=== PATIENT | female | born 1930 | race Caucasian/White ===

== ENCOUNTER 2017-05-11 08:10 | Emergency (ER) | payer MEDICARE, BC ==
[2017-05-11 08:23] VITALS: BP 140/76
--- NOTE | 2017-05-11 09:06 | ERNOTE ---
Back Pain ER HPI Presenting Symptoms: hx chronic back pain Time Seen by Provider: 05/11/17 08:37 Source: patient Exam Limitations: no limitations Allergies/Adverse Reactions: Allergies No Known Allergies Allergy (Verified 05/11/17 08:23) Home Medications: HOME MEDICATIONS Ascorbic Acid [Vitamin C] 1,000 mg PO DAILY 07/06/14 [Last Taken Unknown] Atenolol [Tenormin] 50 mg PO DAILY 07/06/14 [Last Taken Unknown] Docusate Sodium [Stool Softener] 50 mg PO DAILY 07/06/14 [Last Taken Unknown] Gabapentin [Neurontin] 600 mg PO HS 07/06/14 [Last Taken Unknown] Lisinopril [Zestril] 40 mg PO DAILY 07/06/14 [Last Taken Unknown] Morphine Sulfate 15 mg PO Q12H 07/06/14 [Last Taken Unknown] Omeprazole [Prilosec] 20 mg PO DAILY 07/06/14 [Last Taken Unknown] Potassium 99 mg PO DAILY 07/06/14 [Last Taken Unknown] metFORMIN HCL [Glucophage] 500 mg PO BIDWM 07/06/14 [Last Taken Unknown] oxyCODONE HCL [Oxycodone] 10 mg PO Q4H PRN 07/06/14 [Last Taken Unknown] Meclizine HCl [Motion-Time] 25 mg PO 09/15/14 [Last Taken 09/15/14 15:00] Pseudoephedrine HCl [Sudafed] 30 mg PO 09/15/14 [Last Taken 09/15/14 14:00] Amitriptyline HCl [Elavil] 10 mg PO HS #30 tablet 05/11/17 [Last Taken Unknown] Narrative: Patient has chronic low back pain from advanced arthritis as well as spinal stenosis. Patient has received epidural injections in the past although she has not required one for many years. She been trying to get some relief from the chiropractor with only minimal success. She states she has both oxycodone and morphine at home but doesn't appear to be working very well. Timing: Reports: constant Quality/Severity: Reports: moderate Location of pain: Reports: lower back Activities at Onset: Reports: none Recent Injury?: Reports: no Modifying Factors - (Improves): Reports: nothing Modifying Factors - (Worsens): Reports: movement to right, movement to left, movement flexion Review of Systems - Review of Systems Constitutional: Present: See HPI EYE: Present: no symptoms reported ENT: Present: no symptoms reported Respiratory: Present: no symptoms reported Cardiology: Present: no symptoms reported Gastrointestinal/Abdominal: Present: no symptoms reported Genitourinary: Present: no symptoms reported Musculoskeletal: Present: See HPI, back pain Skin: Present: no symptoms reported Neurological: Present: no symptoms reported Endocrine: Present: no symptoms reported Hematologic/Lymphatic: Present: no symptoms reported Psych: Present: no symptoms reported - Patient's Past Medical History Patient History - Medical: Diabetes Type 1, UTI'S, Other - chronic back pain and spinal stenosis Patient History - Cardiac/Respiratory: Hypertension Patient History - Cancer: Colon Patient History - Surgical Procedures: Colon Resection, Hysterectomy Patient History - Other: None - Social History Living Situations: spouse Abuse History: No History of abuse Psych History: No pertinent hx Smoking Status: Former smoker Have you smoked in the past 12 months: No Alcohol Use: none Drug Use: none Physical Exam - Physical Exam General Appearance: Present: wd/wn, alert, moderate distress Head Exam: Present: normal inspection Eye Exam: Normal inspection: bilateral, PERRL: bilateral Ears, Nose, Throat: Present: normal ENT inspection, H, normal pharynx Neck: Present: normal inspection, nontender Respiratory: Present: no respiratory distress, normal breath sounds, no accessory muscle use, chest nontender, lungs clear Cardiovascular/Chest: Present: regular rate, rhythm, no murmur, normal peripheral pulses Gastrointestinal/Abdominal: Present: normal bowel sounds, nontender, nondistended, soft, no organomegaly Rectal Exam: Present: deferred Back Exam: Present: decreased range of motion Extremity Exam: Present: normal inspection, non-tender, no edema, normal range of motion Neurological Exam: Present: alert, oriented, normal mood/affect Skin Exam: Present: normal color, warm/dry Lymphatic Exam: Present: no adenopathy ED Progress - Vital Signs Patient's Vital Signs:: I have reviewed the patient's vital signs. Vital Signs: Vital Signs 05/11/17 08:10 Temperature 37 C Pulse Rate 75 Respiratory 14 Rate Blood Pressure 140/76 - X-Ray X-Ray #1 X-Ray: lumbosacral Interpretation: Reviewed by me - Progress/Reassessment Chief Complaint: Back Pain Plan - Plan Plan: Patient has a combination of both DJD and spinal stenosis. She is going to be problematic to manage from emergency department and shortly has adequate pain medicines at home. We will try adding small dose amitriptyline to the regimen and she will see Dr. Francois on this week and he will arrange for an anesthesia consult for an epidural. Departure Clinical Impression: Chronic back pain Qualifiers: Back pain location: low back pain Back pain laterality: bilateral Sciatica presence: without sciatica Qualified Code(s): M54.5 - Low back pain - Departure Disposition: Home self-care Condition: Good Instructions: Back Pain, Adult, [id number], Spinal Stenosis, [id number] Additional Instructions: See Dr. Francois on at 2:30 Referrals: Owen Francois MD [Primary Care Provider] - Prescriptions: Amitriptyline HCl [Elavil] 10 mg PO HS #30 tablet
== END 2017-05-11 09:20 | disposition home or self-care (01) ==
LOC: ER 08:10
DX: M54.5 Low back pain (principal)

== ENCOUNTER 2017-05-12 09:40 | Emergency (ER) | payer MEDICARE, BC ==
[2017-05-12 09:52] VITALS: BP 133/66
[2017-05-12] MEDS ORDERED: MORPHINE SULFATE 2 MG/ML DISP.SYRIN IM ONE (10:38)
[2017-05-12] MEDS ORDERED: KETOROLAC TROMETHAMINE 30 MG/ML VIAL IM ONE (10:38)
[2017-05-12] MEDS ORDERED: MORPHINE SULFATE 2 MG/ML DISP.SYRIN ONE (10:43)
[2017-05-12] MEDS ORDERED: KETOROLAC TROMETHAMINE 30 MG/ML VIAL ONE (10:43)
[2017-05-12 11:00] LABS: Hematocrit 30.5 % (37.0-47.0); Hemoglobin 10.3 gm/dL (12.5-16.0); Mean Cell Volume 105.5 fl (78-100); Mean Corpuscular Hemoglobin 35.6 pg (27-31); Mean Corpuscular Hgb Conc 33.8 g/dl (32-36); Mean Platelet Volume 11.6 fl (6.0-9.5); Neutrophil # 7.1 K/mm3 (1.3-6.0); Neutrophil % 82.2 % (42-75.0); Platelet Count 194 K/mm3 (150-450); Red Blood Count 2.89 M/mm3 (4.2-5.4); Red Cell Distribution Width 16.8 % (11.5-14.0); White Blood Count 8.6 K/mm3 (4.0-10.5)
--- NOTE | 2017-05-12 11:09 | ERNOTE ---
Back Pain ER HPI Date of Service: 05/12/17 Time Seen by Provider: 05/12/17 10:00 Source: patient Exam Limitations: no limitations Immunizations: IMMUNIZATION HX Immunizations Up to Date No History of Influenza Vaccine No Hx Pneumococcal Vaccination No Allergies/Adverse Reactions: Allergies No Known Allergies Allergy (Verified 05/12/17 09:52) Home Medications: HOME MEDICATIONS Ascorbic Acid [Vitamin C] 1,000 mg PO DAILY 07/06/14 [Last Taken Unknown] Atenolol [Tenormin] 50 mg PO DAILY 07/06/14 [Last Taken Unknown] Docusate Sodium [Stool Softener] 50 mg PO DAILY 07/06/14 [Last Taken Unknown] Gabapentin [Neurontin] 600 mg PO HS 07/06/14 [Last Taken Unknown] Lisinopril [Zestril] 40 mg PO DAILY 07/06/14 [Last Taken Unknown] Morphine Sulfate 15 mg PO Q12H 07/06/14 [Last Taken Unknown] Omeprazole [Prilosec] 20 mg PO DAILY 07/06/14 [Last Taken Unknown] Potassium 99 mg PO DAILY 07/06/14 [Last Taken Unknown] metFORMIN HCL [Glucophage] 500 mg PO BIDWM 07/06/14 [Last Taken Unknown] oxyCODONE HCL [Oxycodone] 10 mg PO Q4H PRN 07/06/14 [Last Taken Unknown] Meclizine HCl [Motion-Time] 25 mg PO 09/15/14 [Last Taken 09/15/14 15:00] Pseudoephedrine HCl [Sudafed] 30 mg PO 09/15/14 [Last Taken 09/15/14 14:00] Amitriptyline HCl [Elavil] 10 mg PO HS #30 tablet 05/11/17 [Last Taken Unknown] Polyethylene Glycol 3350 [Miralax] 17 gm PO DAILY #2 bottle 05/12/17 [Last Taken Unknown] predniSONE [Prednisone] 3 tab PO DAILY #9 tab 05/12/17 [Last Taken Unknown] Narrative: Pt. comes in with c/o three day history of back pain. Pt. denies any injury, SOB, CP, fever, NVD, but does state that she has had constipation but after taking a laxative yesterday she had two large incontinent BM yesterday. Pt. states that she has problems with incontinence as she feels she has to go but is unable to make it to the bathroom without assistance and does not make it in time. Review of Systems - Review of Systems Constitutional: Present: no symptoms reported. Absent: recent illness, fever, chills, weakness, fatigue, malaise EYE: Present: no symptoms reported ENT: Present: no symptoms reported Respiratory: Present: no symptoms reported. Absent: shortness of breath, cough , wheezing Cardiology: Present: no symptoms reported. Absent: chest pain, palpitations, edema Gastrointestinal/Abdominal: Present: constipation. Absent: nausea, vomiting, diarrhea, abdominal pain Genitourinary: Present: no symptoms reported Musculoskeletal: Present: back pain - L5 S1, joint pain - L hip Skin: Present: no symptoms reported Neurological: Present: no symptoms reported. Absent: headache, dizziness/light- headedness, numbness, tingling All Other Systems: All systems neg except as marked - Patient's Past Medical History Patient History - Medical: Diabetes Type 1, UTI'S Patient History - Cardiac/Respiratory: No pertinent hx Patient History - Cancer: Colon Patient History - Surgical Procedures: Hysterectomy Patient History - Other: None - Social History Living Situations: spouse Abuse History: No History of abuse Psych History: No pertinent hx Have you smoked in the past 12 months: No Alcohol Use: none Drug Use: none - Immunizations Immunizations Up to Date: No Hx Pneumococcal Vaccination: No History of Influenza Vaccine: No Physical Exam - Physical Exam General Appearance: Present: wd/wn, alert, no apparent distress Head Exam: Present: normal inspection, no evidence of injury Eye Exam: Normal inspection: bilateral, PERRL: bilateral, EOMI: bilateral Ears, Nose, Throat: Present: normal ENT inspection, normal pharynx Neck: Present: normal inspection, nontender. Absent: lymphadenopathy (R), lymphadenopathy (L) Respiratory: Present: no respiratory distress, normal breath sounds, no accessory muscle use, chest nontender, lungs clear Cardiovascular/Chest: Present: regular rate, rhythm, no murmur, normal peripheral pulses Rectal Exam: Present: nontender, normal rectal tone, heme negative stool. Absent: fecal impaction, hemorrhoids Back Exam: Present: no CVA tenderness, vertebral tenderness - L5 S1, decreased range of motion - twisting and bending, other - kyphosis Extremity Exam: Present: normal inspection, normal range of motion, no edema, bony tenderness - prox humerus Neurological Exam: Present: alert, oriented, normal mood/affect, motor weakness - generalized, other - no numbness or sensory deficit Skin Exam: Present: normal color, warm/dry. Absent: pallor, skin rash ED Progress - Date and Time Seen: Date and Time: 05/12/17 10:53 Reveiwed xray from yesterday and pt. has significant degenerative disc disease. Pt. ambulated in hallway with minimal assist with FWW but needed 1 person assist to get up from seated position. Pt. spouse states that he is unable to help her get from lying or sitting to standing position without calling someone for help. Pt. is only having mild pain with sitting and standing but is having significant pain with bending or twisting of back in her L hip. Discussed with family that since last injection back has worsened and that I feel the best course of treatment is strengthening and possible JAG at some point to treat the inflammation. 05/12/17 12:13 Pt. also with arthritis in her hip that is hurting and constipation so feel that a steroid burst and laxative would be helpful for this. Feel that pt. needs bedside commode and FWW will help at home with mobility and home health to visit pt. and arrange for physical therapy and further modalities. - Vital Signs Patient's Vital Signs:: I have reviewed the patient's vital signs. Vital Signs: Vital Signs 05/12/17 09:48 Temperature 36.4 C L Pulse Rate 79 Respiratory 18 Rate Blood Pressure 133/66 O2 Sat by Pulse 96 Oximetry - X-Ray X-Ray #1 X-Ray: abdomen Interpretation: Reviewed by me X-ray Comments: non specific bowel gas. Mild constipation X-Ray #2 X-Ray: hip Interpretation: Reviewed by me X-ray Comments: osteopenia and minimal joint narrowing. 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 Referrals: Owen Francois MD [Primary Care Provider] - Prescriptions: Polyethylene Glycol 3350 [Miralax] 17 gm PO DAILY #2 bottle predniSONE [Prednisone] 3 tab PO DAILY #9 tab
[2017-05-12 11:18] LABS: Albumin * 3.6 gm/dl (3.4-5.0); Anion Gap 14.6 mmol/L (6.8-13.8); BUN/Creatinine Ratio 21.4 (9.0-21.6); Bilirubin, Total 1.2 mg/dL (0.0-1.1); Ca. Corrected For Albumin 8.7 mg/dL (8.4-10.2); Calcium * 8.7 mg/dL (7.9-10.9); Carbon Dioxide 26.4 mmol/L (24-32.6); Total Protein 7.6 gm/dL (6.2-8.2)
[2017-05-12 12:13] LABS: Urine Bilirubin Negative (NEGATIVE); Urine Ketone 5 mg/dL (NEGATIVE); Urine Nitrite Negative (NEGATIVE); Urine Protein 15 mg/dL (NEGATIVE); Urine Urobilinogen 4 EU/dl (NORMAL)
[2017-05-12 12:20] LABS: Urine Appearance Clear; Urine Bacteria None Seen; Urine Blood 5 /ul (NEGATIVE); Urine Color Dark Yellow; Urine RBC 0-5 /hpf (0-5); Urine WBC None Seen /hpf (0-5)
== END 2017-05-12 13:02 | disposition home or self-care (01) ==
LOC: ER 09:40
DX: M54.42 Lumbago with sciatica, left side (principal); K59.01 Slow transit constipation; M16.7 Other unilateral secondary osteoarthritis of hip; Z87.440 Personal history of urinary (tract) infections; Z85.038 Personal history of other malignant neoplasm of large intestine

== ENCOUNTER 2017-06-16 07:15 | Day surgery (SDC) | payer MEDICARE, BC ==
--- NOTE | 2017-06-16 07:45 | OR ---
Anesthesia Pre Procedure Eval Date of Service: 06/16/17 Pre Procedure Evaluation: Last Vital Signs Temp 36.9 C 06/16/17 07:24 Pulse 61 06/16/17 07:24 Resp 16 06/16/17 07:24 BP 161/71 06/16/17 07:24 Pulse Ox 97 06/16/17 07:24 Anesthesia Pre Procedure Evaluation DATE: 06/16/2017 TIME: 07 40 INDICATIONS: Low back and left radicular pain, facet arthropathy with L4 5 left facet inflammation PAST MEDICAL HISTORY: Ms. Melo has had a long history of back issues with previous injections offering good relief. She has been doing very well recently up until 2 weeks ago when she had a sudden onset of left back and leg radicular pain. History of GERD: No History of smoking: No History of sleep apnea: No EXAM: Heart S1-S2 regular; lungs clear bilaterally ASSESSMENT OF MEDICAL STATUS: Appropriate candidate for injection. Her history of diabetes as discussed in the potential for increased blood sugars for the next 2 days to 2 weeks was discussed. PLANNED PROCEDURE: Facet injection L4 5, possibly L3 4 left Home Medications: HOME MEDICATIONS Ascorbic Acid [Vitamin C] 1,000 mg PO DAILY 07/06/14 [Last Taken Unknown] Atenolol [Tenormin] 50 mg PO DAILY 07/06/14 [Last Taken Unknown] Docusate Sodium [Stool Softener] 50 mg PO DAILY 07/06/14 [Last Taken Unknown] Gabapentin [Neurontin] 600 mg PO HS 07/06/14 [Last Taken Unknown] Lisinopril [Zestril] 40 mg PO DAILY 07/06/14 [Last Taken Unknown] Omeprazole [Prilosec] 20 mg PO DAILY 07/06/14 [Last Taken Unknown] Potassium 99 mg PO DAILY 07/06/14 [Last Taken Unknown] metFORMIN HCL [Glucophage] 500 mg PO BIDWM 07/06/14 [Last Taken Unknown] oxyCODONE HCL [Oxycodone] 5 mg PO Q4H PRN 07/06/14 [Last Taken Unknown] Polyethylene Glycol 3350 [Miralax] 17 gm PO DAILY #2 bottle 05/12/17 [Last Taken Unknown] Meloxicam [Mobic] 15 mg PO DAILY 06/14/17 [Last Taken Unknown] Morphine Sulfate [Ms Contin] 15 mg PO BID 06/14/17 [Last Taken Unknown] Potassium Gluconate 1,000 mg PO DAILY 06/14/17 [Last Taken Unknown]
[2017-06-16] MEDS ORDERED: BUPIVACAINE HCL/PF 30 ML VIAL EP ONE (08:35)
[2017-06-16] MEDS ORDERED: DEXAMETHASONE SOD PHOSPHATE 10 MG/ML VIAL IJ ONE (08:35)
--- NOTE | 2017-06-16 08:57 | OR ---
Anesthesia Procedure Note - Anesthesia Procedure Note Date of Service: 06/16/17 Narrative: Vital Signs - Last Taken Temp 37.0 C 06/16/17 08:45 Pulse 61 06/16/17 08:45 Resp 16 06/16/17 08:45 BP 160/82 06/16/17 08:45 Pulse Ox 96 06/16/17 08:45 06/16/17 08:52 ANESTHESIA PROCEDURE NOTE Date of Procedure: 06/16/2017 Time of procedure: 8:10 AM. Performed by: RODRIGO Pool CRNA, MSN Endocrinology Specialist: Tawanna Apple RN. Preprocedure diagnosis: Facet arthropathy L4 5 facet inflammation, back and left radicular pain. Post procedure diagnosis: Same. Procedure: Facet injection L4 5 and L3 4 left. Indications: Left radicular pain. Findings: See below. Details of the procedure: The patient was brought to or #4 and was placed in the prone position. The back was prepped with DuraPrep and draped in a sterile fashion. The lumbar facets were identified under fluoroscopy and a straight needle restrepo was used to identify the level of treatment. An oblique view was then obtained to identify the angle of entry and the area was localized with 1% lidocaine solution and a 22ga Ceja needle oriented down the beam of the fluoroscopy tube. The spinal needle was then advanced to contact the left L4 5 facet joint and 0.25ml of isoview 200 was injected demonstrating an intracapsular distribution. A total of one ml containing 0.25% bupivacaine with 10mg depomedrol was then injected, the stylette was replaced and the spinal needle removed. The procedure was then repeated at the L3 4 level and images of both oblique and lateral views were saved. A Band-Aid was then applied to the injection site,the patient returned to the OR stretcher with good relief of pain and was then returned to [facility]. EBL: Minimal/negative. Fluids: N/A. Specimen: N/A. Radiation dosage: Time; 34.8 seconds, dosage; 19.5mGy Post procedure condition: The patient tolerated the procedure well. No complications were noted. Thank you for this consultation. Olivier Ferrera CRNA, [employer] TECHNICIAN, MSN
[2017-06-16 09:15] VITALS: BP 140/75
== END 2017-06-16 07:16 | disposition home or self-care (01) ==
LOC: AMB 07:15
PROVIDERS: ATTEND Family Medicine
PROC: 3E0U3BZ Introduction of Anesthetic Agent into Joints, Percutaneous Approach (ICD-10-PCS; 2017-06-16)
PROC: 3E0U33Z Introduction of Anti-inflammatory into Joints, Percutaneous Approach (ICD-10-PCS; principal; 2017-06-16 08:00)
DX: M46.86 Other specified inflammatory spondylopathies, lumbar region (principal); M62.830 Muscle spasm of back